=== PATIENT | female | born 1995 | race American Indian/Alaskan Native ===

== ENCOUNTER 2017-12-22 10:56 | Inpatient (IN) | payer SELFPAY ==
--- NOTE | 2017-12-22 11:37 | Emergency Department Report ---
Minor Respiratory - HPI Chief Complaint: Upper Respiratory Infection Stated Complaint: CHEST PAIN/SUHA Time Seen by Provider: 12/22/17 11:31 Duration: 2 Days Pain Location: Chest Severity: moderate Minor Respiratory: Yes Rhinorrhea, Yes Able to Tolerate Fluids, Yes Cough, Yes Chest Pain (chest discomfort with cough), Yes Shortness of Breath, No Sore Throat, No Ear Pain, No Sick Contacts, No Hemoptysis, No Fever Other History: This is a 22-year-old -[place] female who presents with upper respiratory symptoms for 2 days. Patient states she started thinking basically over normal bowel movement of symptoms yesterday. She is now complaining of shortness of breath, cough, chest discomfort with cough, and body aches. She denies sick contacts. Past medical history of bronchitis. Last menstrual period 11/27/2017. Patient states she has urinary frequency. Denies vaginal discharge, fever, nausea or vomiting, abdominal pain, and diarrhea. ED Review of Systems ROS: Stated complaint: CHEST PAIN/SUHA Other details as noted in HPI Constitutional: denies: chills, fever ENT: congestion. denies: ear pain, throat pain Respiratory: cough, shortness of breath, SOB with exertion, wheezing Cardiovascular: chest pain (chest discomfort with cough). denies: palpitations Gastrointestinal: denies: abdominal pain, nausea, diarrhea Skin: denies: rash, lesions Neurological: denies: headache, weakness, paresthesias Psychiatric: denies: anxiety, depression ED Past Medical Hx - Past Medical History Additional medical history: bronchitis - Surgical History Past Surgical History?: No - Social History Smoking Status: Never Smoker Substance Use Type: None Minor Respiratory Exam - Exam General: Vital signs noted. No distress. Alert and acting appropriately. HEENT: Yes Moist Mucous Membranes, Yes Rhinorrhea (turbinates mildly congested, clear discharge), No Pharyngeal Erythema, No Pharyngeal Exudates, No Conjuctival Injection, No Frontal Tenderness, No Maxillary Tenderness Ear: Neither TM Bulge, Neither TM Erythema, Neither EAC Pain, Neither EAC Discharge Neck: Yes Supple, No Adenopathy Lungs: Yes Wheezes, No Good Air Exchange, No Ronchi, No Stridor, No Cough, No Labored Respirations, No Retractions, No Use of Accessory Muscles, No Other Abnormal Lung Sounds Heart: Yes Regular, No Murmur Abdomen: Yes Normal Bowel Sounds, No Tenderness, No Peritoneal Signs Skin: No Rash, No Edema Neurologic: Alert and oriented, no deficits. Musculoskeletal: Unremarkable. ED Course Vital Signs 12/22/17 11:22 Temperature 97.4 F L Pulse Rate 120 H Respiratory 24 Rate Blood Pressure 143/79 O2 Sat by Pulse 95 Oximetry ED Medical Decision Making - Lab Data Result diagrams: 12/22/17 16:08 12/22/17 16:08 Lab Results 12/22/17 12/22/17 12/22/17 Range/Units 13:43 16:08 16:08 WBC 9.7 (4.5-11.0) K/mm3 RBC 5.39 H (3.65-5.03) M/mm3 Hgb 15.0 H (10.1-14.3) gm/dl Hct 46.5 H (30.3-42.9) % MCV 86 (79-97) fl MCH 28 (28-32) pg MCHC 32 (30-34) % RDW 13.5 (13.2-15.2) % Plt Count 268 (140-440) K/mm3 Seg Neutrophils % Cosmetic Surgeon Sodium 136 L (137-145) mmol/L Potassium 4.2 (3.6-5.0) mmol/L Chloride 96.9 L (98-107) mmol/L Carbon Dioxide 20 L (22-30) mmol/L Anion Gap 23 mmol/L BUN 7 (7-17) mg/dL Creatinine 0.7 (0.7-1.2) mg/dL Estimated GFR > 60 ml/min BUN/Creatinine Ratio 10 % Glucose 137 H (65-100) mg/dL Calcium 10.0 (8.4-10.2) mg/dL Total Bilirubin 0.40 (0.1-1.2) mg/dL AST 32 (5-40) units/L ALT 20 (7-56) units/L Alkaline Phosphatase 97 (35-129) units/L Total Protein 8.8 H (6.3-8.2) g/dL Albumin 4.7 (3.9-5) g/dL Albumin/Globulin Ratio 1.1 % Urine Color Yellow (Yellow) Urine Turbidity Clear (Clear) Urine pH 6.0 (5.0-7.0) Ur Specific [place] 1.008 (1.003-1.030) Urine Protein 30 mg/dl (Negative) mg/dL Urine Glucose (UA) Neg (Negative) mg/dL Urine Ketones 20 (Negative) mg/dL Urine Blood Neg (Negative) Urine Nitrite Neg (Negative) Ur Reducing Substances Not Reportable Urine Bilirubin Neg (Negative) Urine Ictotest Not Reportable Urine Urobilinogen < 2.0 (<2.0) mg/dL Ur Leukocyte Esterase Neg (Negative) Urine WBC (Auto) 1.0 (0.0-6.0) /HPF Urine RBC (Auto) < 1.0 (0.0-6.0) /HPF U Epithel Cells (Auto) < 1.0 (0-13.0) /HPF Urine Bacteria (Auto) 1+ (Negative) /HPF Urine Mucus Few /HPF Urine HCG, Qual Negative (Negative) - Radiology Data Radiology results: report reviewed, image reviewed CHEST TWO VIEWS: 12/22/17 12:24 CLINICAL: Shortness of breath. COMPARISON: None FINDINGS: Normal heart and pulmonary vasculature. The lungs are hyperinflated and hyperlucent. No airspace disease or pleural effusion. The bones and soft tissues are normal. IMPRESSION: Pulmonary hyperinflation consistent with asthma and otherwise negative. - Medical Decision Making 22 y.o. female that presents with SOB and chest tightness for 2 days. History of bronchitis. Patient examined by me and in slight distress. Vitals stable. IV site obtained. Given duoneb treatment twice, Proventil, magnesium, and Solu- Medrol 125 mg po once in ER. Chest x-ray obtained and dictated by radiologist. Pulmonary hyperinflation consistent with asthma and otherwise negative. Wheezes are not improving. Ordered CBC and CMP, pending. Consulted hospitalist Dr. Lott who agreed to admit to med/surg. Critical care attestation.: If time is entered above; I have spent that time in minutes in the direct care of this critically ill patient, excluding procedure time. ED Disposition Clinical Impression: Shortness of breath on exertion Asthma Qualifiers: Asthma severity: mild Asthma persistence: intermittent Asthma complication type : with acute exacerbation Qualified Code(s): J45.21 - Mild intermittent asthma with (acute) exacerbation Asthma exacerbation Qualifiers: Asthma severity: mild Asthma persistence: intermittent Qualified Code(s): J45.21 - Mild intermittent asthma with (acute) exacerbation Disposition: OP ADMIT IP TO THIS HOSP Is pt being admited?: Yes Condition: Stable Referrals: PRIMARY CARE, [Primary Care Provider] - 3-5 Days
[2017-12-22] MEDS ORDERED: DUONEB *Not for PRN Use IH ONE ×4 (11:38→15:28)
[2017-12-22] MEDS ORDERED: PROVENTIL IH ONE (12:32)
[2017-12-22] MEDS ORDERED: SOLU-Medrol IV ONE (12:32)
--- NOTE | 2017-12-22 12:34 | Emergency Department Report ---
Blank Doc - Documentation Documentation: Patient states that she has had upper respiratory type symptoms for the past 2 days. Patient is wheezing diffusely. Patient received 2 DuoNeb before going to x-ray but after return from x-ray still very labored with her breathing. Patient to be moved to a treatment room for a continuous albuterol treatment and Solu-Medrol magnesium patient be reassessed
[2017-12-22] MEDS ORDERED: MAGNESIUM SULFATE 1 GM in NACL 0.9% 50 ML IV ONE (13:00)
--- NOTE | 2017-12-22 13:25 | XRay Report ---
CHEST TWO VIEWS: 12/22/17 12:24 CLINICAL: Shortness of breath. COMPARISON: None FINDINGS: Normal heart and pulmonary vasculature. The lungs are hyperinflated and hyperlucent. No airspace disease or pleural effusion. The bones and soft tissues are normal. IMPRESSION: Pulmonary hyperinflation consistent with asthma and otherwise negative.
[2017-12-22 13:57] LABS: HCG Qualitative,Urine Negative (Negative)
[2017-12-22 14:04] LABS: Bacteria,Urine 1+ /HPF (Negative); Bilirubin,Urine NEG (Negative); Blood,Urine NEG (Negative); Color,Urine Yellow (Yellow); Mucus,Urine FEW /HPF; RBC,Urine < 1.0 /HPF (0.0-6.0); Urobilinogen,Urine < 2.0 mg/dL (<2.0)
[2017-12-22 16:37] LABS: Hematocrit 46.5 % (30.3-42.9); Mean Corpuscular HGB Conc 32 % (30-34); Mean Corpuscular Hemoglobin 28 pg (28-32); Mean Corpuscular Volume 86 fl (79-97); Platelet Count 268 K/mm3 (140-440); Red Blood Count 5.39 M/mm3 (3.65-5.03); Red Cell Distribution Width 13.5 % (13.2-15.2)
[2017-12-22 16:47] LABS: Alanine Aminotransferase 20 units/L (7-56); Albumin 4.7 g/dL (3.9-5); BUN/Creatinine Ratio 10; Blood Urea Nitrogen 7 mg/dL (7-17); Hemolysis Index 14
[2017-12-22] MEDS: D5NS 1,000 ML IV SCH (17:58)
[2017-12-22 19:14] LABS: Anisocytosis 1+; Basophils % (Manual) 0 % (0.0-1.8); Eosinophils % (Manual) 0 % (0.0-4.3); Platelet Estimate Consistent w Auto; Total Cells Counted 100
[2017-12-22] MEDS ORDERED: SODIUM CHLORIDE FLUSH SYRINGE 10 ML IV PRN (20:16)
[2017-12-22] MEDS ORDERED: REGLAN IV PRN (20:16)
[2017-12-22] MEDS ORDERED: ZOFRAN IV PRN (20:16)
[2017-12-22] MEDS ORDERED: DILAUDID IV PRN (20:16)
[2017-12-22] MEDS ORDERED: PERCOCET 5/325 PO PRN (20:16)
[2017-12-22] MEDS ORDERED: TYLENOL PO PRN (20:16)
[2017-12-22] MEDS ORDERED: MORPHINE IV PRN (20:16)
[2017-12-22] MEDS ORDERED: PROVENTIL IH PRN (20:20)
--- NOTE | 2017-12-22 20:29 | History and Physical Report ---
History of Present Illness Date of examination: 12/22/17 Date of admission: 12/22/17 16:52 Chief complaint: Chief complaint Cough and fever for 2 days History of present illness: VERONICA: 22-year-old female with no significant past medical history comes in for cough and chest discomfort while coughing for 2 days. Cough is better off of mucoid yellow sputum and low-grade fever present. Chest discomfort secondary to coughing. No history of asthma. No exacerbating or relieving factors. No sick contacts. Past Medical History Additional medical history: bronchitis Surgical History Past Surgical History?: No Social History Smoking Status: Never Smoker Substance Use Type: None Family history N/a Review of Systems ROS: Stated complaint: CHEST PAIN/SUHA Other details as noted in HPI Constitutional: denies: chills, fever ENT: congestion. denies: ear pain, throat pain Respiratory: cough, shortness of breath, SOB with exertion, wheezing Cardiovascular: chest pain (chest discomfort with cough). denies: palpitations Gastrointestinal: denies: abdominal pain, nausea, diarrhea Skin: denies: rash, lesions Neurological: denies: headache, weakness, paresthesias Psychiatric: denies: anxiety, depression Medications and Allergies Allergies Allergy/AdvReac Type Severity Reaction Status Date / Time No Known Allergies Allergy Unverified 12/22/17 11:26 Home Medications Medication Instructions Recorded Confirmed Last Taken Type No Known Home Medications [No 12/22/17 12/22/17 Unknown History Reported Home Medications] Active Meds: Active Medications Acetaminophen (Tylenol) 650 mg PO Q4H PRN PRN Reason: Pain MILD(1-3)/Fever >100.5/[place] Albuterol (Proventil) 2.5 mg IH Q3H PRN PRN Reason: Shortness Of Breath Albuterol/Ipratropium (Duoneb *Not For Prn Use*) 1 ampul IH QIDRT CORY Famotidine (Pepcid) 20 mg IV BID CORY Hydromorphone HCl (Dilaudid) 0.5 mg IV Q3H PRN PRN Reason: Pain , Severe (7-10) Dextrose/Sodium Chloride (D5ns) 1,000 mls @ 75 mls/hr IV DIRECT CORY Last Admin: 12/22/17 17:58 Dose: 75 mls/hr Levofloxacin/Dextrose (Levaquin 750mg/150ml) 750 mg in 150 mls @ 100 mls/hr IV Q24HR CORY; Protocol Methylprednisolone Sodium Succinate (Solu-Medrol) 40 mg IV Q8HR CORY Metoclopramide HCl (Reglan) 10 mg IV Q6H PRN PRN Reason: Nausea And Vomiting Morphine Sulfate (Morphine) 2 mg IV Q4H PRN PRN Reason: Pain, Moderate (4-6) Ondansetron HCl (Zofran) 4 mg IV Q8H PRN PRN Reason: Nausea And Vomiting Oxycodone/Acetaminophen (Percocet 5/325) 1 tab PO Q6H PRN PRN Reason: Pain, Moderate (4-6) Sodium Chloride (Sodium Chloride Flush Syringe 10 Ml) 10 ml IV BID CORY Sodium Chloride (Sodium Chloride Flush Syringe 10 Ml) 10 ml IV PRN PRN PRN Reason: LINE FLUSH Exam - Constitutional Vitals: Temp Pulse Resp BP Pulse Ox 98.5 F 111 H 22 116/70 99 12/22/17 17:59 12/22/17 17:59 12/22/17 17:59 12/22/17 17:59 12/22/17 17:59 General appearance: Present: mild distress, well-nourished - EENT Eyes: Present: PERRL ENT: hearing intact, clear oral mucosa - Neck Neck: Present: supple, normal ROM - Respiratory Respiratory effort: normal Respiratory: bilateral: CTA, diminished, rhonchi - Cardiovascular Heart rate: 78 Rhythm: regular Heart Sounds: Present: S1 & S2. Absent: rub, click - Extremities Extremities: pulses symmetrical, No edema Peripheral Pulses: within normal limits - Abdominal General gastrointestinal: Present: soft, non-tender, non-distended, normal bowel sounds Female genitourinary: Present: normal - Rectal Rectal Exam: deferred - Integumentary Integumentary: Present: clear, warm, dry - Musculoskeletal Musculoskeletal: gait normal, strength equal bilaterally - Psychiatric Psychiatric: appropriate mood/affect, intact judgment & insight - Neurologic Neurologic: CNII-XII intact, moves all extremities - Allied Health Allied health notes reviewed: nursing, case management Results - Labs CBC & Chem 7: 12/22/17 16:08 12/22/17 16:08 Labs: Laboratory Last Values WBC 9.7 K/mm3 (4.5-11.0) 12/22/17 16:08 RBC 5.39 M/mm3 (3.65-5.03) H 12/22/17 16:08 Hgb 15.0 gm/dl (10.1-14.3) H 12/22/17 16:08 Hct 46.5 % (30.3-42.9) H 12/22/17 16:08 MCV 86 fl (79-97) 12/22/17 16:08 MCH 28 pg (28-32) 12/22/17 16:08 MCHC 32 % (30-34) 12/22/17 16:08 RDW 13.5 % (13.2-15.2) 12/22/17 16:08 Plt Count 268 K/mm3 (140-440) 12/22/17 16:08 Add Manual Diff Complete 12/22/17 16:08 Total Counted 100 12/22/17 16:08 Seg Neutrophils % Microscopist 12/22/17 16:08 Seg Neuts % (Manual) 93.0 % (40.0-70.0) H 12/22/17 16:08 Band Neutrophils % 0 % 12/22/17 16:08 Lymphocytes % (Manual) 4.0 % (13.4-35.0) L 12/22/17 16:08 Reactive Lymphs % (Man) 0 % 12/22/17 16:08 Monocytes % (Manual) 3.0 % (0.0-7.3) 12/22/17 16:08 Eosinophils % (Manual) 0 % (0.0-4.3) 12/22/17 16:08 Basophils % (Manual) 0 % (0.0-1.8) 12/22/17 16:08 Metamyelocytes % 0 % 12/22/17 16:08 Myelocytes % 0 % 12/22/17 16:08 Promyelocytes % 0 % 12/22/17 16:08 Blast Cells % 0 % 12/22/17 16:08 Nucleated RBC % Not Reportable 12/22/17 16:08 Seg Neutrophils # Man 9.0 K/mm3 (1.8-7.7) H 12/22/17 16:08 Band Neutrophils # 0.0 K/mm3 12/22/17 16:08 Lymphocytes # (Manual) 0.4 K/mm3 (1.2-5.4) L 12/22/17 16:08 Abs React Lymphs (Man) 0.0 K/mm3 12/22/17 16:08 Monocytes # (Manual) 0.3 K/mm3 (0.0-0.8) 12/22/17 16:08 Eosinophils # (Manual) 0.0 K/mm3 (0.0-0.4) 12/22/17 16:08 Basophils # (Manual) 0.0 K/mm3 (0.0-0.1) 12/22/17 16:08 Metamyelocytes # 0.0 K/mm3 12/22/17 16:08 Myelocytes # 0.0 K/mm3 12/22/17 16:08 Promyelocytes # 0.0 K/mm3 12/22/17 16:08 Blast Cells # 0.0 K/mm3 12/22/17 16:08 WBC Morphology Not Reportable 12/22/17 16:08 Hypersegmented Neuts Not Reportable 12/22/17 16:08 Hyposegmented Neuts Not Reportable 12/22/17 16:08 Hypogranular Neuts Not Reportable 12/22/17 16:08 Smudge Cells Not Reportable 12/22/17 16:08 Toxic Granulation Not Reportable 12/22/17 16:08 Toxic Vacuolation Not Reportable 12/22/17 16:08 Dohle Bodies Not Reportable 12/22/17 16:08 Pelger-Huet Anomaly Not Reportable 12/22/17 16:08 Sumanth Rods Not Reportable 12/22/17 16:08 Platelet Estimate Consistent w auto 12/22/17 16:08 Clumped Platelets Not Reportable 12/22/17 16:08 Plt Clumps, EDTA Not Reportable 12/22/17 16:08 Large Platelets Not Reportable 12/22/17 16:08 Giant Platelets Not Reportable 12/22/17 16:08 Platelet Satelliting Not Reportable 12/22/17 16:08 Plt Morphology Comment Not Reportable 12/22/17 16:08 RBC Morphology Not Reportable 12/22/17 16:08 Dimorphic RBCs Not Reportable 12/22/17 16:08 Polychromasia Not Reportable 12/22/17 16:08 Hypochromasia Not Reportable 12/22/17 16:08 Poikilocytosis Not Reportable 12/22/17 16:08 Anisocytosis 1+ 10/10/18 16:08 Microcytosis Not Reportable 12/22/17 16:08 Macrocytosis Not Reportable 12/22/17 16:08 Spherocytes Not Reportable 12/22/17 16:08 Pappenheimer Bodies Not Reportable 12/22/17 16:08 Sickle Cells Not Reportable 12/22/17 16:08 Target Cells Not Reportable 12/22/17 16:08 Tear Drop Cells Not Reportable 12/22/17 16:08 Ovalocytes Not Reportable 12/22/17 16:08 Helmet Cells Not Reportable 12/22/17 16:08 Joy-Roca Bodies Not Reportable 12/22/17 16:08 [place] Rings Not Reportable 12/22/17 16:08 [place] Cells Not Reportable 12/22/17 16:08 Bite Cells Not Reportable 12/22/17 16:08 Crenated Cell Not Reportable 12/22/17 16:08 Elliptocytes Not Reportable 12/22/17 16:08 Acanthocytes (Spur) Not Reportable 12/22/17 16:08 Rouleaux Not Reportable 12/22/17 16:08 Hemoglobin C Crystals Not Reportable 12/22/17 16:08 Schistocytes Not Reportable 12/22/17 16:08 Malaria parasites Not Reportable 12/22/17 16:08 Marshall Bodies Not Reportable 12/22/17 16:08 Hem Pathologist Commnt No 12/22/17 16:08 Sodium 136 mmol/L (137-145) L 12/22/17 16:08 Potassium 4.2 mmol/L (3.6-5.0) 12/22/17 16:08 Chloride 96.9 mmol/L (98-107) L 12/22/17 16:08 Carbon Dioxide 20 mmol/L (22-30) L 12/22/17 16:08 Anion Gap 23 mmol/L 12/22/17 16:08 BUN 7 mg/dL (7-17) 12/22/17 16:08 Creatinine 0.7 mg/dL (0.7-1.2) 12/22/17 16:08 Estimated GFR > 60 ml/min 12/22/17 16:08 BUN/Creatinine Ratio 10 % 12/22/17 16:08 Glucose 137 mg/dL (65-100) H 12/22/17 16:08 Calcium 10.0 mg/dL (8.4-10.2) 12/22/17 16:08 Total Bilirubin 0.40 mg/dL (0.1-1.2) 12/22/17 16:08 AST 32 units/L (5-40) 12/22/17 16:08 ALT 20 units/L (7-56) 12/22/17 16:08 Alkaline Phosphatase 97 units/L (35-129) 12/22/17 16:08 Total Protein 8.8 g/dL (6.3-8.2) H 12/22/17 16:08 Albumin 4.7 g/dL (3.9-5) 12/22/17 16:08 Albumin/Globulin Ratio 1.1 % 12/22/17 16:08 Urine Color Yellow (Yellow) 12/22/17 13:43 Urine Turbidity Clear (Clear) 12/22/17 13:43 Urine pH 6.0 (5.0-7.0) 12/22/17 13:43 Ur Specific [place] 1.008 (1.003-1.030) 12/22/17 13:43 Urine Protein 30 mg/dl mg/dL (Negative) 12/22/17 13:43 Urine Glucose (UA) Neg mg/dL (Negative) 12/22/17 13:43 Urine Ketones 20 mg/dL (Negative) 12/22/17 13:43 Urine Blood Neg (Negative) 12/22/17 13:43 Urine Nitrite Neg (Negative) 12/22/17 13:43 Ur Reducing Substances Not Reportable 12/22/17 13:43 Urine Bilirubin Neg (Negative) 12/22/17 13:43 Urine Ictotest Not Reportable 12/22/17 13:43 Urine Urobilinogen < 2.0 mg/dL (<2.0) 12/22/17 13:43 Ur Leukocyte Esterase Neg (Negative) 12/22/17 13:43 Urine WBC (Auto) 1.0 /HPF (0.0-6.0) 12/22/17 13:43 Urine RBC (Auto) < 1.0 /HPF (0.0-6.0) 12/22/17 13:43 U Epithel Cells (Auto) < 1.0 /HPF (0-13.0) 12/22/17 13:43 Urine Bacteria (Auto) 1+ /HPF (Negative) 12/22/17 13:43 Urine Mucus Few /HPF 12/22/17 13:43 Urine HCG, Qual Negative (Negative) 12/22/17 13:43 Short CBC 12/22/17 Range/Units 16:08 WBC 9.7 (4.5-11.0) K/mm3 Hgb 15.0 H (10.1-14.3) gm/dl Hct 46.5 H (30.3-42.9) % Plt Count 268 (140-440) K/mm3 BMP 12/22/17 16:08 Sodium 136 L Potassium 4.2 Chloride 96.9 L Carbon Dioxide 20 L BUN 7 Creatinine 0.7 Glucose 137 H Calcium 10.0 Liver Function 12/22/17 Range/Units 16:08 Total Bilirubin 0.40 (0.1-1.2) mg/dL AST 32 (5-40) units/L ALT 20 (7-56) units/L Alkaline Phosphatase 97 (35-129) units/L Albumin 4.7 (3.9-5) g/dL Urine 12/22/17 Range/Units 13:43 Urine Color Yellow (Yellow) Urine pH 6.0 (5.0-7.0) Ur Specific [place] 1.008 (1.003-1.030) Urine Protein 30 mg/dl (Negative) mg/dL Urine Glucose (UA) Neg (Negative) mg/dL - Imaging and Cardiology Chest x-ray: report reviewed Imaging and Cardiology: Chest x-ray FINDINGS: Normal heart and pulmonary vasculature. The lungs are hyperinflated and hyperlucent. No airspace disease or pleural effusion. The bones and soft tissues are normal. IMPRESSION: Pulmonary hyperinflation consistent with asthma and otherwise negative. Assessment and Plan Advance Directives: Yes (full code) VTE prophylaxis?: Chemical Plan of care discussed with patient/family: Yes - Patient Problems (1) Asthmatic bronchitis Current Visit: Yes Status: Acute Qualifiers: Asthma severity: severe Plan to address problem: Patient started on IV Levaquin IV Solu-Medrol at 40 mg every 8 and albuterol every 3 when necessary along with DuoNeb's 4 times a day [id number]. Also Pulmicort started Singulair also started (2) Asthma exacerbation Current Visit: Yes Status: Acute Qualifiers: Asthma severity: mild Asthma persistence: intermittent Qualified Code(s) : J45.21 - Mild intermittent asthma with (acute) exacerbation Plan to address problem: Same as above (3) DVT prophylaxis Current Visit: Yes Status: Acute Plan to address problem: On Lovenox and GI prophylaxis
[2017-12-22] MEDS ORDERED: SOLU-Medrol IV SCH (22:00)
[2017-12-22] MEDS: SOLU-Medrol IV SCH (22:40)
[2017-12-22] MEDS: PEPCID IV SCH (22:40)
[2017-12-22] MEDS: SODIUM CHLORIDE FLUSH SYRINGE 10 ML IV SCH (22:41)
[2017-12-22] MEDS: LEVAQUIN 750MG/150ML 750 MG/150 ML BAG IV SCH (22:47)
[2017-12-23 05:27] LABS: BUN/Creatinine Ratio 11; Blood Urea Nitrogen 8 mg/dL (7-17); Calcium 9.5 mg/dL (8.4-10.2); Hemolysis Index 3
[2017-12-23] MEDS: SOLU-Medrol IV SCH ×3 (06:50→22:16)
[2017-12-23] MEDS: D5NS 1,000 ML IV SCH (06:52)
--- NOTE | 2017-12-23 08:25 | Progress Note ---
Assessment and Plan Assessment and plan: Patient is a 22-year-old woman with no significant past medical history who pw cough and chest discomfort while coughing for 2 days. * 2v Chest x-ray IMPRESSION: Pulmonary hyperinflation consistent with asthma and otherwise negative. Asthmatic bronchitis: Patient started on IV Levaquin IV Solu-Medrol at 40 mg every 8, changed albuterol to Xopenex because patient said her throat started swelling after multiple doses of Albuterol. Also Pulmicort started, Singulair also started Asthma exacerbation: bronchodilators and iv steriods Neck swelling: get XRay of neck and check TSH DVT prophylaxis: On Lovenox and GI prophylaxis History Interval history: Patient was seen and examined. Follow-up on current diagnosis sob. Overnight uneventful. Patient denies any nausea/vomiting or severe headaches. Imaging, nursing note, chart, labs and old chart reviewed. Discussed with patient. Hospitalist Physical - Physical exam Narrative exam: GEN: WDWN, NAD, Awake, Alert, Orientated x 3, bmi 31.3 HEENT: NCAT, EOMI, PERRL, OP Clear NECK: supple, +adenopathy, + thyromegaly, no JVD CVS/HEART: RRR, normal S1S2, pulses present bilaterally CHEST/LUNGS: bilateral exp. wheezing, Symmetrical chest expansion, good air entry bilaterally GI/Abdomen: soft, NTND, good bowel sounds, no guarding or rebound /Bladder: no suprapubic tenderness, no CVA or paraspinal tenderness EXT/Skin: no c/c/e, no obvious rash MSK: FROM x 4 Neuro: CN 2-12 grossly intact, no new focal deficits Psych: calm - Constitutional Vitals: Temp Pulse Resp BP Pulse Ox 98.3 F 88 16 108/70 98 12/23/17 05:10 12/23/17 05:10 12/23/17 05:10 12/23/17 05:10 12/23/17 05:10 General appearance: Present: well-nourished. Absent: mild distress Results - Labs CBC & Chem 7: 12/22/17 16:08 12/23/17 04:34 Labs: Laboratory Last Values WBC 9.7 K/mm3 (4.5-11.0) 12/22/17 16:08 RBC 5.39 M/mm3 (3.65-5.03) H 12/22/17 16:08 Hgb 15.0 gm/dl (10.1-14.3) H 12/22/17 16:08 Hct 46.5 % (30.3-42.9) H 12/22/17 16:08 MCV 86 fl (79-97) 12/22/17 16:08 MCH 28 pg (28-32) 12/22/17 16:08 MCHC 32 % (30-34) 12/22/17 16:08 RDW 13.5 % (13.2-15.2) 12/22/17 16:08 Plt Count 268 K/mm3 (140-440) 12/22/17 16:08 Add Manual Diff Complete 12/22/17 16:08 Total Counted 100 12/22/17 16:08 Seg Neutrophils % [employer] 12/22/17 16:08 Seg Neuts % (Manual) 93.0 % (40.0-70.0) H 12/22/17 16:08 Band Neutrophils % 0 % 12/22/17 16:08 Lymphocytes % (Manual) 4.0 % (13.4-35.0) L 12/22/17 16:08 Reactive Lymphs % (Man) 0 % 12/22/17 16:08 Monocytes % (Manual) 3.0 % (0.0-7.3) 12/22/17 16:08 Eosinophils % (Manual) 0 % (0.0-4.3) 12/22/17 16:08 Basophils % (Manual) 0 % (0.0-1.8) 12/22/17 16:08 Metamyelocytes % 0 % 12/22/17 16:08 Myelocytes % 0 % 12/22/17 16:08 Promyelocytes % 0 % 12/22/17 16:08 Blast Cells % 0 % 12/22/17 16:08 Nucleated RBC % Not Reportable 12/22/17 16:08 Seg Neutrophils # Man 9.0 K/mm3 (1.8-7.7) H 12/22/17 16:08 Band Neutrophils # 0.0 K/mm3 12/22/17 16:08 Lymphocytes # (Manual) 0.4 K/mm3 (1.2-5.4) L 12/22/17 16:08 Abs React Lymphs (Man) 0.0 K/mm3 12/22/17 16:08 Monocytes # (Manual) 0.3 K/mm3 (0.0-0.8) 12/22/17 16:08 Eosinophils # (Manual) 0.0 K/mm3 (0.0-0.4) 12/22/17 16:08 Basophils # (Manual) 0.0 K/mm3 (0.0-0.1) 12/22/17 16:08 Metamyelocytes # 0.0 K/mm3 12/22/17 16:08 Myelocytes # 0.0 K/mm3 12/22/17 16:08 Promyelocytes # 0.0 K/mm3 12/22/17 16:08 Blast Cells # 0.0 K/mm3 12/22/17 16:08 WBC Morphology Not Reportable 12/22/17 16:08 Hypersegmented Neuts Not Reportable 12/22/17 16:08 Hyposegmented Neuts Not Reportable 12/22/17 16:08 Hypogranular Neuts Not Reportable 12/22/17 16:08 Smudge Cells Not Reportable 12/22/17 16:08 Toxic Granulation Not Reportable 12/22/17 16:08 Toxic Vacuolation Not Reportable 12/22/17 16:08 Dohle Bodies Not Reportable 12/22/17 16:08 Pelger-Huet Anomaly Not Reportable 12/22/17 16:08 Sumanth Rods Not Reportable 12/22/17 16:08 Platelet Estimate Consistent w auto 12/22/17 16:08 Clumped Platelets Not Reportable 12/22/17 16:08 Plt Clumps, EDTA Not Reportable 12/22/17 16:08 Large Platelets Not Reportable 12/22/17 16:08 Giant Platelets Not Reportable 12/22/17 16:08 Platelet Satelliting Not Reportable 12/22/17 16:08 Plt Morphology Comment Not Reportable 12/22/17 16:08 RBC Morphology Not Reportable 12/22/17 16:08 Dimorphic RBCs Not Reportable 12/22/17 16:08 Polychromasia Not Reportable 12/22/17 16:08 Hypochromasia Not Reportable 12/22/17 16:08 Poikilocytosis Not Reportable 12/22/17 16:08 Anisocytosis 1+ 12/22/17 16:08 Microcytosis Not Reportable 12/22/17 16:08 Macrocytosis Not Reportable 12/22/17 16:08 Spherocytes Not Reportable 12/22/17 16:08 Pappenheimer Bodies Not Reportable 12/22/17 16:08 Sickle Cells Not Reportable 12/22/17 16:08 Target Cells Not Reportable 12/22/17 16:08 Tear Drop Cells Not Reportable 12/22/17 16:08 Ovalocytes Not Reportable 12/22/17 16:08 Helmet Cells Not Reportable 12/22/17 16:08 [place] Bodies Not Reportable 12/22/17 16:08 [place] Rings Not Reportable 12/22/17 16:08 [place] Cells Not Reportable 12/22/17 16:08 Bite Cells Not Reportable 12/22/17 16:08 Crenated Cell Not Reportable 12/22/17 16:08 Elliptocytes Not Reportable 12/22/17 16:08 Acanthocytes (Spur) Not Reportable 12/22/17 16:08 Rouleaux Not Reportable 12/22/17 16:08 Hemoglobin C Crystals Not Reportable 12/22/17 16:08 Schistocytes Not Reportable 12/22/17 16:08 Malaria parasites Not Reportable 12/22/17 16:08 Marshall Bodies Not Reportable 12/22/17 16:08 Hem Pathologist Commnt No 12/22/17 16:08 Sodium 136 mmol/L (137-145) L 12/23/17 04:34 Potassium 5.0 mmol/L (3.6-5.0) 12/23/17 04:34 Chloride 99.0 mmol/L (98-107) 12/23/17 04:34 Carbon Dioxide 23 mmol/L (22-30) 12/23/17 04:34 Anion Gap 19 mmol/L 12/23/17 04:34 BUN 8 mg/dL (7-17) 12/23/17 04:34 Creatinine 0.7 mg/dL (0.7-1.2) 12/23/17 04:34 Estimated GFR > 60 ml/min 12/23/17 04:34 BUN/Creatinine Ratio 11 % 12/23/17 04:34 Glucose 125 mg/dL (65-100) H 12/23/17 04:34 Hemoglobin A1c 5.8 % (4-6) 12/22/17 16:08 Calcium 9.5 mg/dL (8.4-10.2) 12/23/17 04:34 Total Bilirubin 0.40 mg/dL (0.1-1.2) 12/22/17 16:08 AST 32 units/L (5-40) 12/22/17 16:08 ALT 20 units/L (7-56) 12/22/17 16:08 Alkaline Phosphatase 97 units/L (35-129) 12/22/17 16:08 Total Protein 8.8 g/dL (6.3-8.2) H 12/22/17 16:08 Albumin 4.7 g/dL (3.9-5) 12/22/17 16:08 Albumin/Globulin Ratio 1.1 % 12/22/17 16:08 Urine Color Yellow (Yellow) 12/22/17 13:43 Urine Turbidity Clear (Clear) 12/22/17 13:43 Urine pH 6.0 (5.0-7.0) 12/22/17 13:43 Ur Specific [place] 1.008 (1.003-1.030) 12/22/17 13:43 Urine Protein 30 mg/dl mg/dL (Negative) 12/22/17 13:43 Urine Glucose (UA) Neg mg/dL (Negative) 12/22/17 13:43 Urine Ketones 20 mg/dL (Negative) 12/22/17 13:43 Urine Blood Neg (Negative) 12/22/17 13:43 Urine Nitrite Neg (Negative) 12/22/17 13:43 Ur Reducing Substances Not Reportable 12/22/17 13:43 Urine Bilirubin Neg (Negative) 12/22/17 13:43 Urine Ictotest Not Reportable 12/22/17 13:43 Urine Urobilinogen < 2.0 mg/dL (<2.0) 12/22/17 13:43 Ur Leukocyte Esterase Neg (Negative) 12/22/17 13:43 Urine WBC (Auto) 1.0 /HPF (0.0-6.0) 12/22/17 13:43 Urine RBC (Auto) < 1.0 /HPF (0.0-6.0) 12/22/17 13:43 U Epithel Cells (Auto) < 1.0 /HPF (0-13.0) 12/22/17 13:43 Urine Bacteria (Auto) 1+ /HPF (Negative) 12/22/17 13:43 Urine Mucus Few /HPF 12/22/17 13:43 Urine HCG, Qual Negative (Negative) 12/22/17 13:43
[2017-12-23] MEDS: DUONEB *Not for PRN Use IH SCH ×2 (08:38→20:27)
[2017-12-23] MEDS: LEVAQUIN 750MG/150ML 750 MG/150 ML BAG IV SCH (11:19)
[2017-12-23] MEDS: PEPCID IV SCH ×2 (11:20→22:16)
[2017-12-23] MEDS: SODIUM CHLORIDE FLUSH SYRINGE 10 ML IV SCH ×2 (12:54→22:16)
[2017-12-23] MEDS: XOPENEX IH SCH (16:27)
--- NOTE | 2017-12-23 17:48 | XRay Report ---
FINAL REPORT EXAM: XR NECK SOFT TISSUE HISTORY: neck swelling and pain TECHNIQUE: AP and lateral views of the neck soft tissues PRIORS: None. FINDINGS: There is extensive subcutaneous emphysema throughout the neck bilaterally, etiology of which is uncertain. Findings are bothersome for possible perforated viscus unless appropriate history is provided. The tracheal air shadow is patent throughout. No prevertebral soft tissue swelling is seen. The epiglottis is normal. The adenoids and palatine tonsils are normal. Bony structures are unremarkable. IMPRESSION: Extensive subcutaneous emphysema throughout the neck bilaterally. Unless appropriate history is obtained, possibility of perforated viscus should be considered.
--- NOTE | 2017-12-23 19:42 | XRay Report ---
FINAL REPORT EXAM: XR CHEST 1V AP HISTORY: subQ emphysema neck concerned for pneumothorax TECHNIQUE: AP portable view of the chest PRIORS: Soft tissue neck x-rays 12/23/2017 FINDINGS: Lines, tubes, and devices: N/A Lungs and pleura: Trachea is normal in position. There is extensive subcutaneous emphysema overlying the neck and upper chest. There is also pneumomediastinum noted around the cardiac border. Possibility of perforated viscus is not excluded. No definite pneumothorax is seen. Lungs are otherwise clear of infiltrate, pleural effusion, or vascular congestion. Cardiomediastinal silhouette: Cardiac and mediastinal silhouettes are unremarkable. Other: Bony structures are intact. IMPRESSION: Subcutaneous emphysema in the neck and upper chest. There pneumomediastinum around the cardiac border. Perforated viscus is not excluded. These findings were previously discussed regarding the similar findings in the neck x-rays seen previously. No definite pneumothorax is seen.
--- NOTE | 2017-12-23 20:27 | Event Note ---
Date: 12/23/[address] Lott to let him know that I reviewed the CTs. I am concerned for an airway injury causing the extensive SQ air in the neck/upper chest/ mediastinum and neck pain. I do not think this is originating in the chest. The patient needs to be in the ICU and needs an ENT surgeon. If one not available, would consider transfer to another facility. May benefit from intubation if there are signs of increasing SQ air or patient having any difficultly breathing.
--- NOTE | 2017-12-23 21:09 | Cat Scan Report ---
FINAL REPORT PROCEDURE: CT CHEST WO CON TECHNIQUE: Computerized axial tomography of the chest was performed without contrast material. This study is performed without intravenous contrast and the sensitivity for pathology, including neoplasms, adenopathy, abscess, pulmonary embolism and aortic dissection, is reduced. HISTORY: subq emphysema neck COMPARISON: No prior studies are available for comparison. TECHNICAL QUALITY: Satisfactory. FINDINGS: Bilateral lungs and pleural spaces are clear. There is evidence of moderate degree mediastinal emphysema extending into the neck and the bilateral axillary regions. There is also extension of soft tissue air into the subcutaneous region of left breast.. Hilar structures are within normal limits. Aorta is of normal caliber. There is no evidence of mediastinal hematoma. Thyroid demonstrates normal size and density. Visualized upper abdominal structures are within normal limits. Vertebral height is normal. Ribs are intact. Sternum is intact. Clavicles and other bony structures are intact. 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 No acute pulmonary process No evidence of pneumothorax.
--- NOTE | 2017-12-23 21:14 | Cat Scan Report ---
FINAL REPORT PROCEDURE: CT NECK WO CON TECHNIQUE: Computerized tomography of the soft tissue neck was performed without contrast material. This study is performed without intravascular contrast material and its sensitivity for pathology, including neoplasms, inflammation, abscess, free fluid, thrombosis, and arterial dissection, is reduced compared with a contrast enhanced study. HISTORY: subq emphysema neck COMPARISON: No prior studies are available for comparison. FINDINGS: There is extensive soft tissue emphysema involving the soft tissues bilateral neck superiorly extending to the skullbase in inferiorly extending into the mediastinum and chest wall. There is no obvious evidence of any penetrating wound. Mild degree mucosal thickening is noted involving bilateral ethmoid sinuses. Bones are intact without evidence of an acute fracture. Spinal canal appears to be well maintained. Vertebral height is normal. Pharyngeal and laryngeal airways are within normal limits. Trachea is intact. IMPRESSION: Extensive soft tissue emphysema involving the neck as described above. Chronic bilateral ethmoid sinusitis
--- NOTE | 2017-12-23 21:29 | Event Note ---
Date: 12/23/17 [facility] [phone]
[2017-12-24] MEDS: XOPENEX IH SCH ×3 (00:11→16:04)
[2017-12-24] MEDS: SOLU-Medrol IV SCH ×3 (06:43→21:52)
--- NOTE | 2017-12-24 07:07 | Progress Note ---
Assessment and Plan Assessment and plan: Patient is a 22-year-old woman with no significant past medical history who pw cough and chest discomfort while coughing for 2 days. * 2v Chest x-ray IMPRESSION: Pulmonary hyperinflation consistent with asthma and otherwise negative. * CT neck wo contrast IMPRESSION: Extensive soft tissue emphysema involving the neck as described above. 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 No acute pulmonary process No evidence of pneumothorax. * pCXR IMPRESSION: Subcutaneous emphysema in the neck and upper chest. There pneumomediastinum around the cardiac border. Perforated viscus is not excluded. These findings were previously discussed regarding the similar findings in the neck x-rays seen previously. No definite pneumothorax is seen. Neck swelling with subcutaneous emphysema (see above Imaging) is doing much better, helped by O2, denies trauma/procedure to the neck, suspect related to excessive coughing leading to perforation in the neck unknown location, need ENT. I notified [facility], who called an ENT, they gave instruction to move to ICU and transfer patient to Higher level of care with ENT available, which Dr. Lott tried but [facility] refused transfer. I called [facility], spoked with Desiree in transfer center. She will call me back after getting the face sheet. Asthmatic bronchitis: Patient started on IV Levaquin IV Solu-Medrol at 40 mg every 8, changed albuterol to Xopenex because patient said her throat started swelling after multiple doses of Albuterol. Also Pulmicort started, Singulair also started Asthma exacerbation: bronchodilators and iv steriods DVT prophylaxis: On Lovenox and GI prophylaxis CCT 34 minutes History Interval history: Patient was seen and examined. Follow-up on current diagnosis sob. Overnight uneventful. Patient denies any nausea/vomiting or severe headaches. Imaging, nursing note, chart, labs and old chart reviewed. Discussed with patient. Hospitalist Physical - Physical exam Narrative exam: GEN: WDWN, NAD, Awake, Alert, Orientated x 3, bmi 31.3 HEENT: NCAT, EOMI, PERRL, OP Clear NECK: supple, swollen and tender bilateral, no JVD CVS/HEART: Regular tacyhcardia, normal S1S2, pulses present bilaterally CHEST/LUNGS: bilateral exp. wheezing, Symmetrical chest expansion, good air entry bilaterally GI/Abdomen: soft, NTND, good bowel sounds, no guarding or rebound /Bladder: no suprapubic tenderness, no CVA or paraspinal tenderness EXT/Skin: no c/c/e, no obvious rash MSK: FROM x 4 Neuro: CN 2-12 grossly intact, no new focal deficits Psych: calm - Constitutional Vitals: Temp Pulse Resp BP Pulse Ox 98.2 F 108 H 19 131/69 89 12/24/17 00:00 12/24/17 01:10 12/24/17 01:10 12/24/17 01:10 12/24/17 01:10 General appearance: Present: well-nourished. Absent: mild distress Results - Labs CBC & Chem 7: 12/22/17 16:08 12/23/17 04:34 Labs: Laboratory Last Values WBC 9.7 K/mm3 (4.5-11.0) 12/22/17 16:08 RBC 5.39 M/mm3 (3.65-5.03) H 12/22/17 16:08 Hgb 15.0 gm/dl (10.1-14.3) H 12/22/17 16:08 Hct 46.5 % (30.3-42.9) H 12/22/17 16:08 MCV 86 fl (79-97) 12/22/17 16:08 MCH 28 pg (28-32) 12/22/17 16:08 MCHC 32 % (30-34) 12/22/17 16:08 RDW 13.5 % (13.2-15.2) 12/22/17 16:08 Plt Count 268 K/mm3 (140-440) 12/22/17 16:08 Add Manual Diff Complete 12/22/17 16:08 Total Counted 100 12/22/17 16:08 Seg Neutrophils % Director [employer] 12/22/17 16:08 Seg Neuts % (Manual) 93.0 % (40.0-70.0) H 12/22/17 16:08 Band Neutrophils % 0 % 12/22/17 16:08 Lymphocytes % (Manual) 4.0 % (13.4-35.0) L 12/22/17 16:08 Reactive Lymphs % (Man) 0 % 12/22/17 16:08 Monocytes % (Manual) 3.0 % (0.0-7.3) 12/22/17 16:08 Eosinophils % (Manual) 0 % (0.0-4.3) 12/22/17 16:08 Basophils % (Manual) 0 % (0.0-1.8) 12/22/17 16:08 Metamyelocytes % 0 % 12/22/17 16:08 Myelocytes % 0 % 12/22/17 16:08 Promyelocytes % 0 % 12/22/17 16:08 Blast Cells % 0 % 12/22/17 16:08 Nucleated RBC % Not Reportable 12/22/17 16:08 Seg Neutrophils # Man 9.0 K/mm3 (1.8-7.7) H 12/22/17 16:08 Band Neutrophils # 0.0 K/mm3 12/22/17 16:08 Lymphocytes # (Manual) 0.4 K/mm3 (1.2-5.4) L 12/22/17 16:08 Abs React Lymphs (Man) 0.0 K/mm3 12/22/17 16:08 Monocytes # (Manual) 0.3 K/mm3 (0.0-0.8) 12/22/17 16:08 Eosinophils # (Manual) 0.0 K/mm3 (0.0-0.4) 12/22/17 16:08 Basophils # (Manual) 0.0 K/mm3 (0.0-0.1) 12/22/17 16:08 Metamyelocytes # 0.0 K/mm3 12/22/17 16:08 Myelocytes # 0.0 K/mm3 12/22/17 16:08 Promyelocytes # 0.0 K/mm3 12/22/17 16:08 Blast Cells # 0.0 K/mm3 12/22/17 16:08 WBC Morphology Not Reportable 12/22/17 16:08 Hypersegmented Neuts Not Reportable 12/22/17 16:08 Hyposegmented Neuts Not Reportable 12/22/17 16:08 Hypogranular Neuts Not Reportable 12/22/17 16:08 Smudge Cells Not Reportable 12/22/17 16:08 Toxic Granulation Not Reportable 12/22/17 16:08 Toxic Vacuolation Not Reportable 12/22/17 16:08 Dohle Bodies Not Reportable 12/22/17 16:08 Pelger-Huet Anomaly Not Reportable 12/22/17 16:08 Sumanth Rods Not Reportable 12/22/17 16:08 Platelet Estimate Consistent w auto 12/22/17 16:08 Clumped Platelets Not Reportable 12/22/17 16:08 Plt Clumps, EDTA Not Reportable 12/22/17 16:08 Large Platelets Not Reportable 12/22/17 16:08 Giant Platelets Not Reportable 12/22/17 16:08 Platelet Satelliting Not Reportable 12/22/17 16:08 Plt Morphology Comment Not Reportable 12/22/17 16:08 RBC Morphology Not Reportable 12/22/17 16:08 Dimorphic RBCs Not Reportable 12/22/17 16:08 Polychromasia Not Reportable 12/22/17 16:08 Hypochromasia Not Reportable 12/22/17 16:08 Poikilocytosis Not Reportable 12/22/17 16:08 Anisocytosis 1+ 12/22/17 16:08 Microcytosis Not Reportable 12/22/17 16:08 Macrocytosis Not Reportable 12/22/17 16:08 Spherocytes Not Reportable 12/22/17 16:08 Pappenheimer Bodies Not Reportable 12/22/17 16:08 Sickle Cells Not Reportable 12/22/17 16:08 Target Cells Not Reportable 12/22/17 16:08 Tear Drop Cells Not Reportable 12/22/17 16:08 Ovalocytes Not Reportable 12/22/17 16:08 Helmet Cells Not Reportable 12/22/17 16:08 [place] Bodies Not Reportable 12/22/17 16:08 [place] Rings Not Reportable 12/22/17 16:08 Mc Cells Not Reportable 12/22/17 16:08 Bite Cells Not Reportable 12/22/17 16:08 Crenated Cell Not Reportable 12/22/17 16:08 Elliptocytes Not Reportable 12/22/17 16:08 Acanthocytes (Spur) Not Reportable 12/22/17 16:08 Rouleaux Not Reportable 12/22/17 16:08 Hemoglobin C Crystals Not Reportable 12/22/17 16:08 Schistocytes Not Reportable 12/22/17 16:08 Malaria parasites Not Reportable 12/22/17 16:08 [place] Bodies Not Reportable 12/22/17 16:08 Hem Pathologist Commnt No 12/22/17 16:08 Sodium 136 mmol/L (137-145) L 12/23/17 04:34 Potassium 5.0 mmol/L (3.6-5.0) 12/23/17 04:34 Chloride 99.0 mmol/L (98-107) 12/23/17 04:34 Carbon Dioxide 23 mmol/L (22-30) 12/23/17 04:34 Anion Gap 19 mmol/L 12/23/17 04:34 BUN 8 mg/dL (7-17) 12/23/17 04:34 Creatinine 0.7 mg/dL (0.7-1.2) 12/23/17 04:34 Estimated GFR > 60 ml/min 12/23/17 04:34 BUN/Creatinine Ratio 11 % 12/23/17 04:34 Glucose 125 mg/dL (65-100) H 12/23/17 04:34 Hemoglobin A1c 5.8 % (4-6) 12/22/17 16:08 Calcium 9.5 mg/dL (8.4-10.2) 12/23/17 04:34 Total Bilirubin 0.40 mg/dL (0.1-1.2) 12/22/17 16:08 AST 32 units/L (5-40) 12/22/17 16:08 ALT 20 units/L (7-56) 12/22/17 16:08 Alkaline Phosphatase 97 units/L (35-129) 12/22/17 16:08 Total Protein 8.8 g/dL (6.3-8.2) H 12/22/17 16:08 Albumin 4.7 g/dL (3.9-5) 12/22/17 16:08 Albumin/Globulin Ratio 1.1 % 12/22/17 16:08 TSH 0.776 mlU/mL (0.270-4.200) 12/23/17 18:02 Urine Color Yellow (Yellow) 12/22/17 13:43 Urine Turbidity Clear (Clear) 12/22/17 13:43 Urine pH 6.0 (5.0-7.0) 12/22/17 13:43 Ur Specific [place] 1.008 (1.003-1.030) 12/22/17 13:43 Urine Protein 30 mg/dl mg/dL (Negative) 12/22/17 13:43 Urine Glucose (UA) Neg mg/dL (Negative) 12/22/17 13:43 Urine Ketones 20 mg/dL (Negative) 12/22/17 13:43 Urine Blood Neg (Negative) 12/22/17 13:43 Urine Nitrite Neg (Negative) 12/22/17 13:43 Ur Reducing Substances Not Reportable 12/22/17 13:43 Urine Bilirubin Neg (Negative) 12/22/17 13:43 Urine Ictotest Not Reportable 12/22/17 13:43 Urine Urobilinogen < 2.0 mg/dL (<2.0) 12/22/17 13:43 Ur Leukocyte Esterase Neg (Negative) 12/22/17 13:43 Urine WBC (Auto) 1.0 /HPF (0.0-6.0) 12/22/17 13:43 Urine RBC (Auto) < 1.0 /HPF (0.0-6.0) 12/22/17 13:43 U Epithel Cells (Auto) < 1.0 /HPF (0-13.0) 12/22/17 13:43 Urine Bacteria (Auto) 1+ /HPF (Negative) 12/22/17 13:43 Urine Mucus Few /HPF 12/22/17 13:43 Urine HCG, Qual Negative (Negative) 12/22/17 13:43
[2017-12-24] MEDS: PEPCID IV SCH ×2 (10:06→21:53)
[2017-12-24] MEDS: LEVAQUIN 750MG/150ML 750 MG/150 ML BAG IV SCH (10:06)
[2017-12-24] MEDS: SODIUM CHLORIDE FLUSH SYRINGE 10 ML IV SCH ×2 (10:07→21:53)
--- NOTE | 2017-12-24 10:58 | Consultation ---
History of Present Illness Consult date: 12/24/17 Requesting physician: STEPHAN DUONG Reason for consult: other (subcutaneous emphysema and dyspnea) History of present illness: 22 y/o female, admitted 2 days ago with asthma exacerbation. Per patient has no known history of asthma. Did have some breathing issues as a younger child but no formal diagnosis, no therapy. Placed on steroids, abxs, and nebs. On yesterday found to have subcu emphysema, diffuse and concern for airway compromise so transitioned to the unit. This am, per patient and primary, emphysema is much better today. Breathing is good. Patient has no complaints. Family/Friend at bedside. Past History Past Medical History: No medical history Past Surgical History: No surgical history Social history: smoking (uses marijuana) Family history: no significant family history Medications and Allergies Allergies Allergy/AdvReac Type Severity Reaction Status Date / Time No Known Allergies Allergy Unverified 12/22/17 11:26 Home Medications Medication Instructions Recorded Confirmed Last Taken Type No Known Home Medications [No 12/22/17 12/22/17 Unknown History Reported Home Medications] Active Meds: Active Medications Acetaminophen (Tylenol) 650 mg PO Q4H PRN PRN Reason: Pain MILD(1-3)/Fever >100.5/[place] Famotidine (Pepcid) 20 mg IV BID [facility] Last Admin: 12/24/17 10:06 Dose: 20 mg Hydromorphone HCl (Dilaudid) 0.5 mg IV Q3H PRN PRN Reason: Pain , Severe (7-10) Levofloxacin/Dextrose (Levaquin 750mg/150ml) 750 mg in 150 mls @ 100 mls/hr IV Q24HR [facility]; Protocol Last Admin: 12/24/17 10:06 Dose: 100 mls/hr Levalbuterol HCl (Xopenex) 0.63 mg IH Q8HRT [facility] Last Admin: 12/24/17 09:13 Dose: 0.63 mg Methylprednisolone Sodium Succinate (Solu-Medrol) 40 mg IV Q8HR [facility] Last Admin: 12/24/17 06:43 Dose: 40 mg Metoclopramide HCl (Reglan) 10 mg IV Q6H PRN PRN Reason: Nausea And Vomiting Morphine Sulfate (Morphine) 2 mg IV Q4H PRN PRN Reason: Pain, Moderate (4-6) Ondansetron HCl (Zofran) 4 mg IV Q8H PRN PRN Reason: Nausea And Vomiting Oxycodone/Acetaminophen (Percocet 5/325) 1 tab PO Q6H PRN PRN Reason: Pain, Moderate (4-6) Sodium Chloride (Sodium Chloride Flush Syringe 10 Ml) 10 ml IV BID [facility] Last Admin: 12/24/17 10:07 Dose: 10 ml Sodium Chloride (Sodium Chloride Flush Syringe 10 Ml) 10 ml IV PRN PRN PRN Reason: LINE FLUSH Review of Systems All systems: negative Physical Examination Vital signs: Vital Signs Temp Pulse Resp BP Pulse Ox 97.4 F L 120 H 24 143/79 95 12/22/17 11:22 12/22/17 11:22 12/22/17 11:22 12/22/17 11:22 12/22/17 11:22 General appearance: no acute distress, alert Eyes: non-icteric ENT: oropharynx moist Neck: supple, other (subcutaneous emphysema present, creptius felt on both sides ) Effort: normal Ascultation: Bilateral: diminished breath sounds Percussion: Bilateral: not dull Tactile fremitus: Bilateral: normal Cardiovascular: regular rate and rhythm Gastrointestinal: normoactive bowel sounds, soft, non-tender Extremities: no cyanosis, no edema, pink and warm, pulses normal normal mental status, non-focal exam, CN II-XII normal mood appropriate, affect normal Results - Laboratory Findings CBC and BMP: 12/22/17 16:08 12/23/17 04:34 Abnormal lab findings: Abnormal Labs 12/22/17 12/22/17 12/23/17 16:08 16:08 04:34 RBC 5.39 H Hgb 15.0 H Hct 46.5 H Seg Neuts % (Manual) 93.0 H Lymphocytes % (Manual) 4.0 L Seg Neutrophils # Man 9.0 H Lymphocytes # (Manual) 0.4 L Sodium 136 L 136 L Chloride 96.9 L Carbon Dioxide 20 L Glucose 137 H 125 H Total Protein 8.8 H - Diagnostic Findings Chest x-ray: image reviewed CT scan - chest: image reviewed Assessment and Plan 22 y/o female with likely underlying asthma, admitted with cough and shortness of breath, now with subcutaneous emphysema. 1. Exact etiology unknown of emphysema. No major trauma to chest wall or neck. CT of chest and neck reveal no injury to lung or trachea. DO not see a lesion in the esophagus that could explain either. Will continue supplemental O2 to help with reabsorption. Added humidity and nasal spray for comfort 2. Continue asthma therapy, suggest stopping abx, CXR appears clear 3. Will continue to follow along with you.
[2017-12-24] MEDS: DEEP SEA NS SCH ×3 (15:49→22:53)
--- NOTE | 2017-12-24 16:38 | Consultation ---
History of Present Illness Consult date: 12/24/17 Reason for consult: other (subcutaneous emphysema) Requesting physician: LETTY MAXWELL Chief complaint: neck pain - History of present illness History of present illness: 22yo F with h/o bronchitis, presented to the ED on Wednesday with complaints of difficulty breathing and neck pain. She reports that she became ill on Wednesday evening after being at work. She was exposed to a co-worker who had pneumonia. Her symptoms started with a mild cough and general ill feeling that progressed to severe SOB and pain with swallowing. Interestingly, she reported that her symptoms primarily occurred when she was breathing warm air or in a warm room. With cold air or in a cold room, her symptoms completely resolved in terms of the shortness of breath. She has never had anything like this before. She was having difficulty breathing yesterday and pain with swallowing. However, no symptoms have resolved today. She had regular food today without any difficulty. She's very comfortable breathing now. Denies any recent trauma, falls, procedures, biopsies, etc. Past History Past Medical History: No medical history (h/o bronchitis) Past Surgical History: No surgical history Social history: smoking (uses marijuana). denies: alcohol abuse, prescription drug abuse, IV drug use Family history: no significant family history Medications and Allergies Allergies Allergy/AdvReac Type Severity Reaction Status Date / Time No Known Allergies Allergy Unverified 12/22/17 11:26 Home Medications Medication Instructions Recorded Confirmed Last Taken Type No Known Home Medications [No 12/22/17 12/22/17 Unknown History Reported Home Medications] Active Meds: Active Medications Acetaminophen (Tylenol) 650 mg PO Q4H PRN PRN Reason: Pain MILD(1-3)/Fever >100.5/[place] Famotidine (Pepcid) 20 mg IV BID [facility] Last Admin: 12/24/17 10:06 Dose: 20 mg Hydromorphone HCl (Dilaudid) 0.5 mg IV Q3H PRN PRN Reason: Pain , Severe (7-10) Levofloxacin/Dextrose (Levaquin 750mg/150ml) 750 mg in 150 mls @ 100 mls/hr IV Q24HR [facility]; Protocol Last Admin: 12/24/17 10:06 Dose: 100 mls/hr Levalbuterol HCl (Xopenex) 0.63 mg IH Q8HRT [facility] Last Admin: 12/24/17 16:04 Dose: 0.63 mg Methylprednisolone Sodium Succinate (Solu-Medrol) 40 mg IV Q8HR [facility] Last Admin: 12/24/17 15:49 Dose: 40 mg Metoclopramide HCl (Reglan) 10 mg IV Q6H PRN PRN Reason: Nausea And Vomiting Morphine Sulfate (Morphine) 2 mg IV Q4H PRN PRN Reason: Pain, Moderate (4-6) Ondansetron HCl (Zofran) 4 mg IV Q8H PRN PRN Reason: Nausea And Vomiting Oxycodone/Acetaminophen (Percocet 5/325) 1 tab PO Q6H PRN PRN Reason: Pain, Moderate (4-6) Sodium Chloride (Sodium Chloride Flush Syringe 10 Ml) 10 ml IV BID [facility] Last Admin: 12/24/17 10:07 Dose: 10 ml Sodium Chloride (Sodium Chloride Flush Syringe 10 Ml) 10 ml IV PRN PRN PRN Reason: LINE FLUSH Sodium Chloride (Deep Sea) 1 spray NS QID [facility] Last Admin: 12/24/17 15:49 Dose: 1 spray Review of Systems - Constitutional no fever, no chills, no chronic pain - EENT Ears, nose, mouth and throat: odynophagia (resolved), pain front of neck, neck fullness/pressure, no dysphagia, no hoarseness - Cardiovascular no chest pain, no rapid/irregular heart beat - Respiratory cough (resolved), no shortness of breath (resolved) - Gastrointestinal no abdominal pain, no nausea, no vomiting - Integumentary no wounds Exam Vital Signs Temp Pulse Resp BP Pulse Ox 97.4 F L 120 H 24 143/79 95 12/22/17 11:22 12/22/17 11:22 12/22/17 11:22 12/22/17 11:22 12/22/17 11:22 - General physical appearance Positive: no distress, no pain, other (young woman laying comfortably in bed watching tv. Very pleasant) - Eyes Positive: normal occular movement - Neck Positive: trachea midline (tender to palpation), no lymphadectomy, no venous distension, other (no lateral or posterior neck tenderness. +subq air). Negative: deviated trachea - Respiratory Positive: normal expansion, normal respiratory effort, clear to auscultation - Cardiovascular Rhythm: regular - Abdomen Abdomen: Present: soft. Absent: tender - Neurologic Neurologic: alert and oriented to time, place and person, motor strength and sensation are grossly intact - Psychiatric Psychiatric: appropriate mood/affect, intact judgment & insight Results - Labs 12/22/17 16:08 12/23/17 04:34 Thyroid panel 12/23/17 Range/Units 18:02 TSH 0.776 (0.270-4.200) mlU/mL Pituitary panel 12/23/17 Range/Units 18:02 TSH 0.776 (0.270-4.200) mlU/mL - Imaging Chest x-ray: report reviewed, image reviewed CT scan - chest: report reviewed, image reviewed Additional studies: CT neck - reviewed report and images Assessment and Plan - Patient Problems (1) Subcutaneous emphysema Current Visit: Yes Status: Acute Qualifiers: Encounter type: initial encounter Qualified Code(s): T79.7XXA - Traumatic subcutaneous emphysema, initial encounter Plan to address problem: Pt stable. Etiology is not clear. Based on her history and exam, I am more inclined to think that this is airway in origin. Perhaps there is a small tracheal diverticula that ruptured. With esophageal perforation, I would've expected fluid and inflammatory changes in the neck/mediastinum. With pneumothorax, I would've expected some small evidence of air around the lungs. As she is getting better, no intervention is needed at the moment. As a precaution, I would keep her in the ICU until tomorrow and then reevaluate her. If she continues to improve, then I think it would be safe to move her to the regular floor. I agree with getting another chest x-ray tomorrow to follow the subcutaneous air. All this was explained to the patient. All questions were answered. She was appreciative. I will follow along. Please call with questions. Time=45min
[2017-12-25] MEDS: XOPENEX IH SCH ×2 (00:16→08:05)
--- NOTE | 2017-12-25 00:45 | XRay Report ---
FINAL REPORT PROCEDURE: XR CHEST ROUTINE 2V TECHNIQUE: A portable AP chest radiograph was obtained at 12/25/2017 00:21 (EST) . CPT 30831 HISTORY: Shortness of breath COMPARISON: No prior studies are available for comparison. FINDINGS: There is pneumomediastinum with subcutaneous emphysema in the neck. This was noted previously on CT dated 12/23/2017. The lungs are expanded. Lung bases are clear. Lung apices are partially obscured by patient's hair. Upper lobe pathology cannot be excluded. Repeat chest x-ray with a hair pulled up suggested. The bony and soft tissue structures are normal. The heart size is normal. IMPRESSION: There is pneumomediastinum with subcutaneous emphysema in the neck. This was noted previously on CT dated 12/23/2017. Lung apices are partially obscured by patient's hair. Upper lobe pathology cannot be excluded. Repeat chest x-ray with a hair pulled up suggested. The heart size is normal. .
[2017-12-25] MEDS: SOLU-Medrol IV SCH (06:01)
--- NOTE | 2017-12-25 08:24 | Progress Note ---
Assessment and Plan 22 y/o female with likely underlying asthma, admitted with cough and shortness of breath, now with subcutaneous emphysema. 1. Repeat CXR stable. Overall improving. This will continue to get better and ultimately resolve. The supplemental O2 did not help much. Reviewed surgery note and agree with their assessment. Other possiblity is she may have ruptured a very small bleb at the apex but not enough to cause complete collapse of the lung. Either way, there is no need for invasive therapy at this time. Will discuss with primary but I think discharge to home with follow up in the office in 1 week's time is reasonable. If they prefer to watch, no objection but will ask that she be moved out of ICU. I do believe she is safe for discharge. Subjective Date of service: 12/25/17 Interval history: No acute events. feels good. Up eating breakfast. CXR is stable. No worsening of SubQ emphysema. Wants to go home. Objective Vital Signs - 12hr 12/24/17 12/24/17 12/24/17 20:30 20:40 20:50 Temperature Pulse Rate 75 78 100 H Pulse Rate [ Anterior Bilateral Throughout] Pulse Rate [ From Monitor] Pulse Rate [ Posterior Bilateral Throughout] Respiratory 17 25 H 25 H Rate Respiratory Rate [Anterior Bilateral Throughout] Respiratory Rate [Posterior Bilateral Throughout] Blood Pressure 134/57 134/57 134/57 O2 Sat by Pulse 96 98 Oximetry 12/24/17 12/24/17 12/24/17 21:00 21:10 21:20 Temperature Pulse Rate 75 103 H 80 Pulse Rate [ Anterior Bilateral Throughout] Pulse Rate [ From Monitor] Pulse Rate [ Posterior Bilateral Throughout] Respiratory 28 H 22 19 Rate Respiratory Rate [Anterior Bilateral Throughout] Respiratory Rate [Posterior Bilateral Throughout] Blood Pressure 129/70 129/70 129/70 O2 Sat by Pulse Oximetry 12/24/17 12/24/17 12/24/17 21:30 21:40 21:50 Temperature Pulse Rate 78 64 70 Pulse Rate [ Anterior Bilateral Throughout] Pulse Rate [ From Monitor] Pulse Rate [ Posterior Bilateral Throughout] Respiratory 23 20 16 Rate Respiratory Rate [Anterior Bilateral Throughout] Respiratory Rate [Posterior Bilateral Throughout] Blood Pressure 129/70 129/70 129/70 O2 Sat by Pulse Oximetry 12/24/17 12/24/17 12/24/17 22:00 22:10 22:20 Temperature Pulse Rate 88 72 72 Pulse Rate [ Anterior Bilateral Throughout] Pulse Rate [ From Monitor] Pulse Rate [ Posterior Bilateral Throughout] Respiratory 20 18 26 H Rate Respiratory Rate [Anterior Bilateral Throughout] Respiratory Rate [Posterior Bilateral Throughout] Blood Pressure 130/79 130/79 130/79 O2 Sat by Pulse 98 Oximetry 12/24/17 12/24/17 12/24/17 22:30 22:40 22:50 Temperature Pulse Rate 70 73 74 Pulse Rate [ Anterior Bilateral Throughout] Pulse Rate [ From Monitor] Pulse Rate [ Posterior Bilateral Throughout] Respiratory 18 17 21 Rate Respiratory Rate [Anterior Bilateral Throughout] Respiratory Rate [Posterior Bilateral Throughout] Blood Pressure 130/79 130/79 130/79 O2 Sat by Pulse Oximetry 12/24/17 12/24/17 12/24/17 23:00 23:04 23:10 Temperature 98.3 F Pulse Rate 65 69 Pulse Rate [ Anterior Bilateral Throughout] Pulse Rate [ From Monitor] Pulse Rate [ Posterior Bilateral Throughout] Respiratory 14 22 Rate Respiratory Rate [Anterior Bilateral Throughout] Respiratory Rate [Posterior Bilateral Throughout] Blood Pressure 130/79 104/69 O2 Sat by Pulse Oximetry 12/24/17 12/24/17 12/24/17 23:20 23:30 23:40 Temperature Pulse Rate 72 68 71 Pulse Rate [ Anterior Bilateral Throughout] Pulse Rate [ From Monitor] Pulse Rate [ Posterior Bilateral Throughout] Respiratory 19 19 15 Rate Respiratory Rate [Anterior Bilateral Throughout] Respiratory Rate [Posterior Bilateral Throughout] Blood Pressure 104/69 104/69 104/69 O2 Sat by Pulse Oximetry 12/24/17 12/24/17 12/25/17 23:50 23:54 00:00 Temperature Pulse Rate 72 78 86 Pulse Rate [ Anterior Bilateral Throughout] Pulse Rate [ 68 From Monitor] Pulse Rate [ Posterior Bilateral Throughout] Respiratory 22 24 17 Rate Respiratory Rate [Anterior Bilateral Throughout] Respiratory Rate [Posterior Bilateral Throughout] Blood Pressure 104/69 104/69 129/56 O2 Sat by Pulse 98 Oximetry 12/25/17 12/25/17 12/25/17 00:10 00:18 00:20 Temperature Pulse Rate 74 71 Pulse Rate [ Anterior Bilateral Throughout] Pulse Rate [ From Monitor] Pulse Rate [ 77 Posterior Bilateral Throughout] Respiratory 20 21 Rate Respiratory Rate [Anterior Bilateral Throughout] Respiratory 26 H Rate [Posterior Bilateral Throughout] Blood Pressure 129/56 129/56 O2 Sat by Pulse Oximetry 12/25/17 12/25/17 12/25/17 00:30 00:31 00:40 Temperature Pulse Rate 91 H 80 Pulse Rate [ Anterior Bilateral Throughout] Pulse Rate [ From Monitor] Pulse Rate [ 75 Posterior Bilateral Throughout] Respiratory 18 21 Rate Respiratory Rate [Anterior Bilateral Throughout] Respiratory 25 H Rate [Posterior Bilateral Throughout] Blood Pressure 129/56 129/56 O2 Sat by Pulse 97 Oximetry 12/25/17 12/25/17 12/25/17 00:50 01:00 01:10 Temperature Pulse Rate 84 88 84 Pulse Rate [ Anterior Bilateral Throughout] Pulse Rate [ From Monitor] Pulse Rate [ Posterior Bilateral Throughout] Respiratory 21 22 16 Rate Respiratory Rate [Anterior Bilateral Throughout] Respiratory Rate [Posterior Bilateral Throughout] Blood Pressure 129/56 129/56 117/55 O2 Sat by Pulse 97 96 97 Oximetry 12/25/17 12/25/17 12/25/17 01:20 01:30 01:40 Temperature Pulse Rate 74 79 73 Pulse Rate [ Anterior Bilateral Throughout] Pulse Rate [ From Monitor] Pulse Rate [ Posterior Bilateral Throughout] Respiratory 17 14 17 Rate Respiratory Rate [Anterior Bilateral Throughout] Respiratory Rate [Posterior Bilateral Throughout] Blood Pressure 117/55 117/55 117/55 O2 Sat by Pulse 96 100 100 Oximetry 12/25/17 12/25/17 12/25/17 01:50 02:00 02:10 Temperature Pulse Rate 75 70 65 Pulse Rate [ Anterior Bilateral Throughout] Pulse Rate [ From Monitor] Pulse Rate [ Posterior Bilateral Throughout] Respiratory 17 15 16 Rate Respiratory Rate [Anterior Bilateral Throughout] Respiratory Rate [Posterior Bilateral Throughout] Blood Pressure 117/55 119/61 119/61 O2 Sat by Pulse 99 99 98 Oximetry 12/25/17 12/25/17 12/25/17 02:20 02:30 02:40 Temperature Pulse Rate 72 Pulse Rate [ Anterior Bilateral Throughout] Pulse Rate [ From Monitor] Pulse Rate [ Posterior Bilateral Throughout] Respiratory 21 Rate Respiratory Rate [Anterior Bilateral Throughout] Respiratory Rate [Posterior Bilateral Throughout] Blood Pressure 119/61 119/61 119/61 O2 Sat by Pulse 100 98 98 Oximetry 12/25/17 12/25/17 12/25/17 02:50 03:00 03:10 Temperature Pulse Rate 73 71 68 Pulse Rate [ Anterior Bilateral Throughout] Pulse Rate [ From Monitor] Pulse Rate [ Posterior Bilateral Throughout] Respiratory 18 17 17 Rate Respiratory Rate [Anterior Bilateral Throughout] Respiratory Rate [Posterior Bilateral Throughout] Blood Pressure 119/61 115/56 115/56 O2 Sat by Pulse 92 92 95 Oximetry 12/25/17 12/25/17 12/25/17 03:16 03:20 03:30 Temperature 98.3 F Pulse Rate 70 73 Pulse Rate [ Anterior Bilateral Throughout] Pulse Rate [ From Monitor] Pulse Rate [ Posterior Bilateral Throughout] Respiratory 18 16 Rate Respiratory Rate [Anterior Bilateral Throughout] Respiratory Rate [Posterior Bilateral Throughout] Blood Pressure 115/56 115/56 O2 Sat by Pulse 95 94 Oximetry 12/25/17 12/25/17 12/25/17 03:32 03:40 03:50 Temperature Pulse Rate 84 67 Pulse Rate [ Anterior Bilateral Throughout] Pulse Rate [ 83 From Monitor] Pulse Rate [ Posterior Bilateral Throughout] Respiratory 16 13 23 Rate Respiratory Rate [Anterior Bilateral Throughout] Respiratory Rate [Posterior Bilateral Throughout] Blood Pressure 115/56 115/56 O2 Sat by Pulse 93 93 Oximetry 12/25/17 12/25/17 12/25/17 04:00 04:10 04:20 Temperature Pulse Rate Pulse Rate [ Anterior Bilateral Throughout] Pulse Rate [ From Monitor] Pulse Rate [ Posterior Bilateral Throughout] Respiratory 20 Rate Respiratory Rate [Anterior Bilateral Throughout] Respiratory Rate [Posterior Bilateral Throughout] Blood Pressure 120/71 120/71 120/71 O2 Sat by Pulse 92 94 95 Oximetry 12/25/17 12/25/17 12/25/17 04:30 04:40 04:50 Temperature Pulse Rate Pulse Rate [ Anterior Bilateral Throughout] Pulse Rate [ From Monitor] Pulse Rate [ Posterior Bilateral Throughout] Respiratory Rate Respiratory Rate [Anterior Bilateral Throughout] Respiratory Rate [Posterior Bilateral Throughout] Blood Pressure 120/71 120/71 120/71 O2 Sat by Pulse 94 94 94 Oximetry 12/25/17 12/25/17 12/25/17 05:00 05:10 05:15 Temperature Pulse Rate Pulse Rate [ Anterior Bilateral Throughout] Pulse Rate [ From Monitor] Pulse Rate [ Posterior Bilateral Throughout] Respiratory 18 Rate Respiratory Rate [Anterior Bilateral Throughout] Respiratory Rate [Posterior Bilateral Throughout] Blood Pressure 115/55 115/55 O2 Sat by Pulse 95 93 97 Oximetry 12/25/17 12/25/17 12/25/17 05:20 05:30 05:40 Temperature Pulse Rate 60 91 H Pulse Rate [ Anterior Bilateral Throughout] Pulse Rate [ From Monitor] Pulse Rate [ Posterior Bilateral Throughout] Respiratory 14 25 H Rate Respiratory Rate [Anterior Bilateral Throughout] Respiratory Rate [Posterior Bilateral Throughout] Blood Pressure 115/55 115/55 115/55 O2 Sat by Pulse 96 99 96 Oximetry 12/25/17 12/25/17 12/25/17 05:50 06:00 06:10 Temperature Pulse Rate 89 82 77 Pulse Rate [ Anterior Bilateral Throughout] Pulse Rate [ From Monitor] Pulse Rate [ Posterior Bilateral Throughout] Respiratory 13 11 L 14 Rate Respiratory Rate [Anterior Bilateral Throughout] Respiratory Rate [Posterior Bilateral Throughout] Blood Pressure 115/55 122/70 122/70 O2 Sat by Pulse 95 91 96 Oximetry 12/25/17 12/25/17 12/25/17 06:20 06:30 06:40 Temperature Pulse Rate 81 74 73 Pulse Rate [ Anterior Bilateral Throughout] Pulse Rate [ From Monitor] Pulse Rate [ Posterior Bilateral Throughout] Respiratory 19 15 22 Rate Respiratory Rate [Anterior Bilateral Throughout] Respiratory Rate [Posterior Bilateral Throughout] Blood Pressure 122/70 122/70 122/70 O2 Sat by Pulse 76 L 97 98 Oximetry 12/25/17 12/25/17 12/25/17 06:50 07:00 07:10 Temperature Pulse Rate 77 78 63 Pulse Rate [ Anterior Bilateral Throughout] Pulse Rate [ From Monitor] Pulse Rate [ Posterior Bilateral Throughout] Respiratory 25 H 19 16 Rate Respiratory Rate [Anterior Bilateral Throughout] Respiratory Rate [Posterior Bilateral Throughout] Blood Pressure 122/70 118/64 118/64 O2 Sat by Pulse 98 96 98 Oximetry 12/25/17 12/25/17 12/25/17 07:20 07:30 07:40 Temperature Pulse Rate 60 58 L 61 Pulse Rate [ Anterior Bilateral Throughout] Pulse Rate [ From Monitor] Pulse Rate [ Posterior Bilateral Throughout] Respiratory 15 13 16 Rate Respiratory Rate [Anterior Bilateral Throughout] Respiratory Rate [Posterior Bilateral Throughout] Blood Pressure 118/64 118/64 118/64 O2 Sat by Pulse 98 99 98 Oximetry 12/25/17 12/25/17 12/25/17 07:50 08:00 08:05 Temperature 98.5 F Pulse Rate 66 79 Pulse Rate [ 81 Anterior Bilateral Throughout] Pulse Rate [ From Monitor] Pulse Rate [ Posterior Bilateral Throughout] Respiratory 16 14 Rate Respiratory 18 Rate [Anterior Bilateral Throughout] Respiratory Rate [Posterior Bilateral Throughout] Blood Pressure 118/64 118/64 O2 Sat by Pulse 99 99 97 Oximetry 12/25/17 08:10 Temperature Pulse Rate 74 Pulse Rate [ Anterior Bilateral Throughout] Pulse Rate [ From Monitor] Pulse Rate [ Posterior Bilateral Throughout] Respiratory 16 Rate Respiratory Rate [Anterior Bilateral Throughout] Respiratory Rate [Posterior Bilateral Throughout] Blood Pressure 122/85 O2 Sat by Pulse 96 Oximetry Constitutional: no acute distress, alert Eyes: non-icteric ENT: oropharynx moist Neck: supple, other (subcutaneous emphysema present, creptius felt on both sides ) Effort: normal Ascultation: Bilateral: diminished breath sounds Percussion: Bilateral: not dull Tactile fremitus: Bilateral: normal Cardiovascular: regular rate and rhythm Gastrointestinal: normoactive bowel sounds, soft, non-tender Extremities: no cyanosis, no edema, pink and warm, pulses normal Neurologic: normal mental status, non-focal exam, CN II-XII normal Psychiatric: mood appropriate, affect normal CBC and BMP: 12/22/17 16:08 12/23/17 04:34 Abnormal lab findings: Abnormal Labs 12/22/17 12/22/17 12/23/17 16:08 16:08 04:34 RBC 5.39 H Hgb 15.0 H Hct 46.5 H Seg Neuts % (Manual) 93.0 H Lymphocytes % (Manual) 4.0 L Seg Neutrophils # Man 9.0 H Lymphocytes # (Manual) 0.4 L Sodium 136 L 136 L Chloride 96.9 L Carbon Dioxide 20 L Glucose 137 H 125 H Total Protein 8.8 H
--- NOTE | 2017-12-25 09:33 | Discharge Summary ---
Providers - Providers Date of Admission: 12/22/17 16:52 Date of discharge: 12/25/17 Attending physician: LETTY MAXWELL 12/23/17 18:24 Consult to Physician [CONS] Routine Comment: Consulting Provider: ADÁN UREÑA Physician Instructions: I notified Reason For Exam: subq emphysema neck 12/23/17 18:36 Consult to Physician [CONS] Routine Comment: Consulting Provider: JAY RUELAS Physician Instructions: Reason For Exam: subq emphysema Primary care physician: [employer] Hospitalization Condition: Stable Hospital course: Patient is a 22-year-old woman with no significant past medical history who pw cough and chest discomfort while coughing for 2 days. * 2v Chest x-ray IMPRESSION: Pulmonary hyperinflation consistent with asthma and otherwise negative. * CT neck wo contrast IMPRESSION: Extensive soft tissue emphysema involving the neck as described above. 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 No acute pulmonary process No evidence of pneumothorax. * pCXR IMPRESSION: Subcutaneous emphysema in the neck and upper chest. There pneumomediastinum around the cardiac border. Perforated viscus is not excluded. These findings were previously discussed regarding the similar findings in the neck x-rays seen previously. No definite pneumothorax is seen. Neck swelling with Subcutaneous emphysema (see above Imaging) is doing much better, helped by O2, denies trauma/procedure to the neck, suspect related to excessive coughing leading to perforation in the neck unknown location, need ENT. I notified IT SENIOR ANALYST, who called an ENT, they gave instruction to move to ICU and transfer patient to Higher level of care with ENT available, which Dr. Lott tried but [facility] refused transfer. I called [place], spoked with Desiree in transfer center. She will call me back after getting the face sheet, after 10 hours she finally called back at 6:15pm. No need to transfer per Dr. Ruelas. Patient did quite well, symptoms improved, swelling decrease more than 50%, off O2, Dr. Ruelas has ok to discharge home with follow up in his office within 1 week (I stressed this to patient). Dr. Ruelas feels the sq air will resolve on its own. Will discharge with Proventil inhaler and steroid taper. Asthmatic bronchitis: Patient started on IV Levaquin IV Solu-Medrol at 40 mg every 8, changed albuterol to Xopenex because patient said her throat started swelling after multiple doses of Albuterol. Also Pulmicort started, Singulair also started Asthma exacerbation: bronchodilators and iv steriods DVT prophylaxis: On Lovenox and GI prophylaxis Disposition: DC-01 TO HOME OR SELFCARE Time spent for discharge: 37 minutes Core Measure Documentation - Palliative Care Palliative Care/ Comfort Measures: Not Applicable - Core Measures Any of the following diagnoses?: none - VTE Discharge Requirements Deep Vein Thrombosis/Pulmonary Embolism Present on Admission: No Has pt received <5 days of overlap therapy or INR<2.0: No Anticoagulant overlap therapy prescribed at discharge: No Contraindication No Overlap Therapy order at DC: Not Indicated Exam - Physical Exam Narrative exam: GEN: WDWN, NAD, Awake, Alert, Orientated x 3, bmi 31.3 HEENT: NCAT, EOMI, PERRL, OP Clear NECK: supple, swollen and tender bilateral, no JVD CVS/HEART: Regular tacyhcardia, normal S1S2, pulses present bilaterally CHEST/LUNGS: bilateral exp. wheezing, Symmetrical chest expansion, good air entry bilaterally GI/Abdomen: soft, NTND, good bowel sounds, no guarding or rebound /Bladder: no suprapubic tenderness, no CVA or paraspinal tenderness EXT/Skin: no c/c/e, no obvious rash MSK: FROM x 4 Neuro: CN 2-12 grossly intact, no new focal deficits Psych: calm - Constitutional Vitals: Temp Pulse Resp BP Pulse Ox 98.5 F 74 16 122/85 96 12/25/17 08:00 12/25/17 08:10 12/25/17 08:10 12/25/17 08:10 12/25/17 08:10 Plan Activity: other (no strenous activity until cleared by lung doctor) Diet: regular Follow up with: PRIMARY MD OLIVIA [Primary Care Provider] - 3-5 Days DAVID NIÑO MD [Staff Physician] - 7 Days Forms: Work/School Release Form Prescriptions: Albuterol Sulfate [Proventil Hfa] 2 puff IH Q4H PRN #1 unit PRN Reason: Shortness Of Breath cefUROXime [Ceftin] 250 mg PO BID #10 tablet Famotidine [Pepcid] 20 mg PO BID #30 tablet oxyCODONE /ACETAMINOPHEN [Percocet 5/325 mg] 1 tab PO Q6H PRN #8 tablet PRN Reason: Pain , Severe (7-10) predniSONE [Deltasone] 1 dose PO QDAY #39 tab
[2017-12-25] MEDS: PEPCID IV SCH (09:45)
[2017-12-25] MEDS: LEVAQUIN 750MG/150ML 750 MG/150 ML BAG IV SCH (09:45)
[2017-12-25 12:16] VITALS: BP 124/63
== END 2017-12-25 11:30 | disposition home or self-care (01) | DRG 203 ==
LOC: EDBD → ED 10:56 → 3A 16:52 → CC1 12-23 20:18
PROVIDERS: ADMIT Internal Medicine; ATTEND Internal Medicine
DX: J45.21 Mild intermittent asthma with (acute) exacerbation (principal); F12.90 Cannabis use, unspecified, uncomplicated; J98.2 Interstitial emphysema
CPT/HCPCS: 36415; 70360; 70490; 71045; 71046; 71250; 80048; 80053; 81001; 81025; 83036; 84443; 85007; 85025; 94640; 94760; 96374; 96375; J1956; J2920; J2930; J3475; J7042